=== PATIENT | female | born 1960 | race Caucasian/White ===

== ENCOUNTER 2016-09-09 12:40 | Inpatient (IN) | payer MEDICAID ==
[~2016-09-09] VITALS: Ht 167.6 cm; Wt 78.2 kg
[2016-09-09] MEDS ORDERED: DIVA500T35 PO (12:53)
[2016-09-09] MEDS ORDERED: ASPI81 PO (12:53)
[2016-09-09 13:11] LABS: BASOPHILS % (AUTO) 2.4 % (0.0-2.0); EOSINOPHILS % (AUTO) 2.4 % (1.0-6.0); HEMATOCRIT 31.9 % (36-46); HEMOGLOBIN 10.7 g/dL (12.0-16.0); LYMPHOCYTES # (AUTO) 2.4 K/uL (1.0-4.8); LYMPHOCYTES % (AUTO) 34.9 % (22.0-44.0); MEAN CORPUSCULAR HEMOGLOBIN 30.6 pg (26.0-34.0); MEAN CORPUSCULAR HGB CONC 33.5 G/dL (31.0-37.0); MEAN CORPUSCULAR VOLUME 91 fL (80-100); MONOCYTES # (AUTO) 0.6 K/uL (0.1-1.0); MONOCYTES % (AUTO) 8.6 % (2.0-9.0); NEUTROPHILS # (AUTO) 3.5 K/uL (1.8-7.7); NEUTROPHILS % (AUTO) 51.7 % (40.0-70.0); PLATELET COUNT (AUTO) 322 K/uL (150-450); RED BLOOD CELL COUNT(AUTO) 3.48 MIL/uL (4.00-5.20); RED CELL DISTRIBUTION WIDTH 16.3 % (11.5-14.5); WHITE BLOOD COUNT (AUTO) 6.8 K/uL (4.5-11.0)
[2016-09-09] MEDS ORDERED: MORPHINE SULFATE 4 MG/ML SYRINGE IVP ONE ×2 (13:15→16:00)
[2016-09-09] MEDS ORDERED: ONDANSETRON HCL 4 MG/2 ML VIAL IVP ONE (13:15)
[2016-09-09] MEDS ORDERED: NITROGLYCERIN 2% (1 GM=INCH) PACKET TP ONE (13:15)
[2016-09-09 13:24] LABS: CALCIUM, TOTAL 8.4 mg/dL (8.8-10.5); CREATININE 1.07 mg/dL (0.60-1.30); POTASSIUM 3.8 mmol/L (3.5-5.1)
[2016-09-09 13:30] LABS: ALBUMIN 3.3 g/dL (3.4-5.0); TOTAL PROTEIN, SERUM 6.7 g/dL (6.4-8.2)
[2016-09-09 13:43] LABS: BILIRUBIN,TOTAL 0.1 mg/dL (0.1-1.0)
[2016-09-09] MEDS ORDERED: ACETAMINOPHEN 325 MG TABLET PO PRN (14:00)
[2016-09-09] MEDS ORDERED: 0.9% SODIUM CHLORIDE 10 ML SYRINGE IVP PRN (14:00)
[2016-09-09] MEDS ORDERED: ONDANSETRON HCL 4 MG/2 ML VIAL IVP PRN (14:00)
[2016-09-09 17:42] VITALS: BP 109/71
[2016-09-09 20:42] VITALS: BP 121/60
[2016-09-09] MEDS: MORPHINE SULFATE 4 MG/ML SYRINGE IVP PRN (20:50)
[2016-09-09 23:44] VITALS: BP 101/60
[2016-09-10] MEDS: MORPHINE SULFATE 4 MG/ML SYRINGE IVP PRN (01:50)
[2016-09-10 05:32] VITALS: BP 117/70
[2016-09-10 07:13] VITALS: BP 98/58
[2016-09-10 07:43] LABS: BASOPHILS % (AUTO) 2.5 % (0.0-2.0); EOSINOPHILS % (AUTO) 6.1 % (1.0-6.0); HEMATOCRIT 33.7 % (36-46); HEMOGLOBIN 11.2 g/dL (12.0-16.0); LYMPHOCYTES # (AUTO) 2.3 K/uL (1.0-4.8); LYMPHOCYTES % (AUTO) 43.1 % (22.0-44.0); MEAN CORPUSCULAR HEMOGLOBIN 30.8 pg (26.0-34.0); MEAN CORPUSCULAR HGB CONC 33.4 G/dL (31.0-37.0); MEAN CORPUSCULAR VOLUME 92 fL (80-100); MONOCYTES # (AUTO) 0.6 K/uL (0.1-1.0); MONOCYTES % (AUTO) 11.6 % (2.0-9.0); NEUTROPHILS # (AUTO) 1.9 K/uL (1.8-7.7); NEUTROPHILS % (AUTO) 36.7 % (40.0-70.0); PLATELET COUNT (AUTO) 311 K/uL (150-450); RED BLOOD CELL COUNT(AUTO) 3.64 MIL/uL (4.00-5.20); RED CELL DISTRIBUTION WIDTH 16.8 % (11.5-14.5); WHITE BLOOD COUNT (AUTO) 5.3 K/uL (4.5-11.0)
[2016-09-10 07:59] LABS: ANION GAP 6 mmol/L (8-16); CALCIUM, TOTAL 8.2 mg/dL (8.8-10.5); CARBON DIOXIDE 28 mmol/L (22-29); CHLORIDE 105 mmol/L (98-107); CREATININE 0.81 mg/dL (0.60-1.30); GLOMERULAR FILTR. RATE CALC > 60 mL/min (>60); POTASSIUM 4.4 mmol/L (3.5-5.1); SODIUM SERUM 139 mmol/L (136-145); UREA NITROGEN, BLOOD 13 mg/dL (7-18)
[2016-09-10 09:00] VITALS: BP 98/52
[2016-09-10] MEDS ORDERED: DIVALPROEX SODIUM 500 MG DR TABLET PO SCH (09:00)
[2016-09-10] MEDS ORDERED: ASPIRIN 81 MG CHEWABLE TABLET PO SCH (09:00)
[2016-09-10] MEDS ORDERED: ONDANSETRON HCL 4 MG/2 ML VIAL IVP PRN (09:45)
[2016-09-10] MEDS ORDERED: NITROGLYCERIN 2% (1 GM=INCH) PACKET TP PRN (09:45)
[2016-09-10] MEDS ORDERED: ACETAMINOPHEN 325 MG TABLET PO PRN (09:45)
[2016-09-10 11:29] VITALS: BP 102/59
[2016-09-10 15:15] VITALS: BP 96/50
[2016-09-10] MEDS ORDERED: IOVERSOL 350 MG/ML 100 ML VIAL ONE (16:22)
[2016-09-10] MEDS ORDERED: 0.9% SODIUM CHLORIDE 10 ML SYRINGE IVP PRN (16:45)
== END 2016-09-10 18:35 | disposition home or self-care (01) | DRG 203 ==
LOC: EMS 12:42 → 5S 16:35
PROVIDERS: ADMIT Family Medicine; ATTEND Family Medicine
DX: M94.0 Chondrocostal junction syndrome [Tietze] (principal); D64.9 Anemia, unspecified; F31.9 Bipolar disorder, unspecified; F41.9 Anxiety disorder, unspecified; F17.210 Nicotine dependence, cigarettes, uncomplicated; F43.10 Post-traumatic stress disorder, unspecified; Z86.711 Personal history of pulmonary embolism; Z88.5 Allergy status to narcotic agent; Z79.899 Other long term (current) drug therapy; Z79.82 Long term (current) use of aspirin; Z98.1 Arthrodesis status; Z82.49 Family history of ischemic heart disease and other diseases of the circulatory system
CPT/HCPCS: 71275; 85379; 93005; 96374; 96375; 96376; 99285; J2270; J2405

== ENCOUNTER 2016-09-29 20:55 | Emergency (ER) | payer MEDICAID ==
[~2016-09-29] VITALS: Ht 162.6 cm; Wt 76.0 kg
[~2016-09-29 20:55] MED LIST: ASPI81 PO; DIVA500T35 PO
[2016-09-30 00:02] VITALS: BP 127/82
== END 2016-09-30 00:50 | disposition home or self-care (01) ==
LOC: EMS 20:56
DX: F41.9 Anxiety disorder, unspecified (principal); F31.9 Bipolar disorder, unspecified; F17.210 Nicotine dependence, cigarettes, uncomplicated; Z88.5 Allergy status to narcotic agent
CPT/HCPCS: 93005; 99284; 99406

== ENCOUNTER 2016-12-29 00:02 | Inpatient (IN) | payer MEDICAID ==
[~2016-12-29] VITALS: Ht 162.6 cm; Wt 74.5 kg
[2016-12-29 02:50] VITALS: BP 131/77
[2016-12-29] MEDS: NICOTINE 14 MG/24 HOUR PATCH TD SCH (08:02)
[2016-12-29 08:44] VITALS: BP 100/62
[2016-12-29 09:00] LABS: BASOPHILS # (AUTO) 0.15 K/uL (0.00-0.20); BASOPHILS % (AUTO) 2.4 % (0.0-2.0); EOSINOPHILS # (AUTO) 0.18 K/uL (0.00-0.70); HEMATOCRIT 35.6 % (36-46); HEMOGLOBIN 11.3 g/dL (12.0-16.0); LYMPHOCYTES # (AUTO) 1.7 K/uL (1.0-4.8); LYMPHOCYTES % (AUTO) 26.4 % (22.0-44.0); MEAN CORPUSCULAR HEMOGLOBIN 28.3 pg (26.0-34.0); MEAN CORPUSCULAR HGB CONC 31.8 G/dL (31.0-37.0); MEAN CORPUSCULAR VOLUME 89 fL (80-100); MONOCYTES # (AUTO) 0.8 K/uL (0.1-1.0); MONOCYTES % (AUTO) 13.2 % (2.0-9.0); NEUTROPHILS # (AUTO) 3.5 K/uL (1.8-7.7); NEUTROPHILS % (AUTO) 55.3 % (40.0-70.0); PLATELET COUNT (AUTO) 429 K/uL (150-450); WHITE BLOOD COUNT (AUTO) 6.4 K/uL (4.5-11.0)
[2016-12-29 09:11] LABS: HEMOGLOBIN A1C 5.3 % (4.5-6.2)
[2016-12-29] MEDS ORDERED: OLAN10TA3 PO (09:32)
[2016-12-29] MEDS ORDERED: ARIP10TA14 PO (09:32)
[2016-12-29] MEDS ORDERED: DIVA500T35 PO (09:32)
[2016-12-29] MEDS ORDERED: ASPI-1146 PO (09:32)
[2016-12-29 09:39] LABS: ALANINE AMINOTRANSFERASE 26 U/L (12-78); ALBUMIN 3.8 g/dL (3.4-5.0); ANION GAP 9 mmol/L (8-16); ASPARTATE AMINOTRANSFERASE 14 U/L (15-37); BILIRUBIN,TOTAL 0.2 mg/dL (0.1-1.0); CARBON DIOXIDE 27 mmol/L (22-29); CHLORIDE 106 mmol/L (98-107); CHOL/HDL RATIO 2.6 (3.9-5.7); CREATININE 0.89 mg/dL (0.60-1.30); GLOMERULAR FILTR. RATE CALC > 60 mL/min (>60); POTASSIUM 4.3 mmol/L (3.5-5.1); SODIUM SERUM 142 mmol/L (136-145); THYROID STIMULATING HORMONE 1.93 uIU/mL (0.36-3.74); TOTAL PROTEIN, SERUM 7.5 g/dL (6.4-8.2); UREA NITROGEN, BLOOD 10 mg/dL (7-18)
[2016-12-29] MEDS ORDERED: ASPI-556 PO (09:40)
[2016-12-29] MEDS ORDERED: IBUP-1546 PO (09:40)
[2016-12-29] MEDS ORDERED: TRAZ150 PO (09:40)
[2016-12-29] MEDS ORDERED: NALT50 PO (09:40)
[2016-12-29] MEDS ORDERED: DiphenhydrAMINE HCL 50 MG/ML VIAL IM ONE (12:15)
[2016-12-29] MEDS ORDERED: LORazepam 2 MG/ML VIAL IM ONE (12:15)
[2016-12-29] MEDS ORDERED: HALOPERIDOL LACTATE 5 MG/ML VIAL IM ONE (12:15)
[2016-12-29] MEDS: BENZTROPINE MESYLATE 0.5 MG TABLET PO SCH (16:46)
[2016-12-29] MEDS: HALOPERIDOL 5 MG TABLET PO SCH (16:46)
[2016-12-30] MEDS: ZOLPIDEM TARTRATE 10 MG TABLET PO PRN ×2 (02:13→20:51)
[2016-12-30] MEDS: LORazepam 1 MG TABLET PO PRN ×3 (06:22→16:13)
[2016-12-30] MEDS: HALOPERIDOL 5 MG TABLET PO SCH ×2 (08:03→16:09)
[2016-12-30] MEDS: NICOTINE 14 MG/24 HOUR PATCH TD SCH (08:03)
[2016-12-30] MEDS: BENZTROPINE MESYLATE 0.5 MG TABLET PO SCH ×2 (08:03→16:09)
[2016-12-30 08:21] VITALS: BP 110/75
[2016-12-30] MEDS: DIVALPROEX SODIUM 500 MG DR TABLET PO SCH (08:29)
[2016-12-30] MEDS ORDERED: DIVALPROEX SODIUM 500 MG DR TABLET PO ONE (08:30)
[2016-12-30 16:19] VITALS: BP 119/80
[2016-12-30] MEDS ORDERED: DIVALPROEX SODIUM 500 MG DR TABLET PO SCH (21:00)
[2016-12-31 03:10] VITALS: BP 113/63
[2016-12-31] MEDS: LORazepam 1 MG TABLET PO PRN ×3 (05:17→13:41)
[2016-12-31 08:36] VITALS: BP 132/86
[2016-12-31] MEDS: HALOPERIDOL 5 MG TABLET PO SCH ×2 (09:30→16:40)
[2016-12-31] MEDS: NICOTINE 14 MG/24 HOUR PATCH TD SCH (09:30)
[2016-12-31] MEDS: DIVALPROEX SODIUM 500 MG DR TABLET PO SCH (09:30)
[2016-12-31] MEDS: BENZTROPINE MESYLATE 0.5 MG TABLET PO SCH ×2 (09:30→16:40)
[2016-12-31 16:01] VITALS: BP 105/68
[2016-12-31] MEDS ORDERED: HALO5 PO (18:53)
[2016-12-31] MEDS ORDERED: DIVA500T35 PO ×2 (18:53)
[2016-12-31] MEDS ORDERED: BENZ0.5T6 PO (18:53)
== END 2016-12-31 19:30 | disposition home or self-care (01) | DRG 751 ==
LOC: B3A 01:00 → EDSTATUS 02:36
PROVIDERS: ADMIT Psychiatry & Neurology Psychiatry; ATTEND Psychiatry & Neurology Psychiatry
DX: F29 Unspecified psychosis not due to a substance or known physiological condition (principal); F22 Delusional disorders; D64.9 Anemia, unspecified; F10.10 Alcohol abuse, uncomplicated; F17.200 Nicotine dependence, unspecified, uncomplicated; F31.9 Bipolar disorder, unspecified; F43.10 Post-traumatic stress disorder, unspecified; G47.33 Obstructive sleep apnea (adult) (pediatric); Z88.6 Allergy status to analgesic agent; Z71.41 Alcohol abuse counseling and surveillance of alcoholic; Z71.51 Drug abuse counseling and surveillance of drug abuser; Z71.6 Tobacco abuse counseling; Z79.82 Long term (current) use of aspirin; Z79.899 Other long term (current) drug therapy
CPT/HCPCS: 83036; 84439; 84443; J1200; J1630; J2060